=== PATIENT | female | born 1965 | race Caucasian/White ===

== ENCOUNTER 2017-07-14 22:01 | Emergency (ER) | payer OTHER ==
[2017-07-14 23:40] LABS: Amphetamine Not Detected (NotDetected); Methadone Not Detected (NotDetected); Methamphetamine Not Detected (NotDetected)
--- NOTE | 2017-08-18 15:26 | EKG ---
Test Reason : Blood Pressure : / mmHG Vent. Rate : 078 BPM Atrial Rate : 078 BPM P-R Int : 146 ms QRS Dur : 086 ms QT Int : 386 ms P-R-T Axes : 069 062 034 degrees QTc Int : 440 ms Normal sinus rhythm Normal ECG Confirmed by GREGORY SCHOFIELD D.O. ([id number]), clinical editor JESSICA MCADAMS ([id number] on 08/18/2017 3:25:52 PM Referred By: Confirmed By:GREGORY SCHOFIELD D.O.
== END 2017-07-15 00:17 | disposition home or self-care (01) ==
LOC: ERS 22:01
DX: F10.129 Alcohol abuse with intoxication, unspecified (principal); I25.2 Old myocardial infarction; Z79.82 Long term (current) use of aspirin; Z79.899 Other long term (current) drug therapy
CPT/HCPCS: 36415; 80306; 80307; 93005